=== PATIENT | female | born 1995 | race African-American/Black ===

== ENCOUNTER 2017-06-15 21:23 | Inpatient (IN) | payer MEDICAID ==
[~2017-06-15] VITALS: Ht 167.6 cm; Wt 70.3 kg
[2017-06-15] MEDS ORDERED: DEXT 5%/LR + PITOCIN 20UNITS/L 1,000 ML IV SCH ×2 (21:38→23:36)
[2017-06-15] MEDS ORDERED: LACTATED RINGERS 1,000 ML IV SCH ×2 (21:38→22:00)
[2017-06-15] MEDS ORDERED: BUTORPHANOL TARTRATE 2 MG/ML VIAL IV PRN (21:43)
[2017-06-15] MEDS ORDERED: NALOXONE HCL 0.4 MG/ML 1ML VIAL IM PRN (21:45)
[2017-06-15] MEDS ORDERED: METHYLERGONOVINE MALEATE 0.2 MG/ML IM PRN (21:45)
[2017-06-15] MEDS ORDERED: LIDOCAINE HCL 1% 20ML VIAL (Pyxis) INJ INFIL SCH (21:45)
[2017-06-15] MEDS ORDERED: MISOPROSTOL 100MCG TABLET VG SCH (21:45)
[2017-06-15] MEDS ORDERED: CARBOPROST TROMETHAMINE 250 MCG/ML AMPUL IM PRN (21:45)
[2017-06-15] MEDS ORDERED: PENICILLIN G POTASSIUM 5 MMU in DEXT 5% WATER 100 ML IV NR (22:00)
[2017-06-15 22:24] LABS: CLARITY URINE CLEAR (CLEAR); COLOR URINE YELLOW (YELLOW); GLUCOSE URINE NEGATIVE (NEGATIVE); KETONES URINE NEGATIVE (NEGATIVE); LEUKOCYTE ESTERASE URINE 1+ (NEGATIVE); NITRITE URINE NEGATIVE (NEGATIVE); OCCULT BLOOD URINE NEGATIVE (NEGATIVE); PROTEIN URINE NEGATIVE (NEGATIVE); SPECIFIC GRAVITY URINE 1.004 (1.005-1.030)
[2017-06-15 22:33] LABS: BASOPHILS % 0.3 % (0.0-2.0); EOSINOPHILS % 0.4 % (0.0-5.0); HEMATOCRIT. 34.2 % (36.0-48.0); HEMOGLOBIN. 11.6 g/dL (12.0-16.0); LYMPHOCYTES % 21.3 % (20.0-50.0); MEAN CORPUSCULAR HEMOGLOBIN 29.9 pg (28.0-32.0); MEAN CORPUSCULAR VOLUME 88.6 fL (81.0-99.0); MEAN PLATELET VOLUME 10.6 fl (7.4-10.4); MONOCYTES % 9.2 % (2.0-8.0); NEUTROPHILS % 68.8 % (40.0-76.0); PLATELET 165 x1000/uL (130-400); RED BLOOD CELL COUNT 3.86 mill/uL (4.2-5.4)
[2017-06-15 22:34] LABS: PARTIAL THROMBOPLASTIN TIME 28.5 sec (23.4-31.0)
[2017-06-15 22:36] LABS: *AMPHETAMINES SCREEN URINE NEGATIVE (NEGATIVE); *BARBITURATES SCREEN URINE NEGATIVE (NEGATIVE); *BENZODIAZEPINES SCREEN URINE NEGATIVE (NEGATIVE); *COCAINE SCREEN URINE NEGATIVE (NEGATIVE); CANNABINOID URINE SCREEN NEGATIVE (NEGATIVE); METHADONE URINE SCREEN NEGATIVE (NEGATIVE); OPIATES URINE SCREEN NEGATIVE (NEGATIVE); PHENCYCLIDINE URINE SCREEN NEGATIVE (NEGATIVE)
[2017-06-15 23:09] LABS: RUBELLA IGG 78.6 IU/mL (4.99-10)
[2017-06-15 23:10] LABS: HEPATITIS B SURFACE ANTIGEN NEGATIVE
[2017-06-15] MEDS ORDERED: GLYCERIN/WITCH HAZEL LEAF MEDICATED PAD TOP PRN (23:45)
[2017-06-15] MEDS ORDERED: RHO(D) IMMUNE GLOBULIN 300 MCG/SYR IM PRN (23:45)
[2017-06-15] MEDS ORDERED: ACETAMINOPHEN WITH CODEINE 300/30MG TABLET PO PRN (23:45)
[2017-06-15] MEDS ORDERED: BISACODYL 10MG SUPP PR PRN (23:45)
[2017-06-16] MEDS ORDERED: TETANUS, DIPHTHERIA, PERTUSSIS VAC/PF 0.5ML (>7YR OLD) IM ONE (00:15)
[2017-06-16] MEDS ORDERED: PENICILLIN G POTASSIUM 2.5 MMU in DEXTROSE 5% WATER 50 ML IV SCH (02:00)
[2017-06-16] MEDS: ACETAMINOPHEN WITH CODEINE 300/30MG TABLET PO PRN ×3 (02:02→20:48)
[2017-06-16] MEDS: IBUPROFEN 400MG TABLET PO PRN ×2 (04:23→12:43)
[2017-06-16 07:50] VITALS: BP 98/61
[2017-06-16 08:39] LABS: BASOPHILS % 0.4 % (0.0-2.0); EOSINOPHILS % 0.4 % (0.0-5.0); HEMATOCRIT. 32.4 % (36.0-48.0); HEMOGLOBIN. 10.8 g/dL (12.0-16.0); LYMPHOCYTES % 19.5 % (20.0-50.0); MEAN CORPUSCULAR HEMOGLOBIN 29.7 pg (28.0-32.0); MEAN CORPUSCULAR VOLUME 88.9 fL (81.0-99.0); MEAN PLATELET VOLUME 10.5 fl (7.4-10.4); MONOCYTES % 8.4 % (2.0-8.0); NEUTROPHILS % 71.3 % (40.0-76.0); PLATELET 152 x1000/uL (130-400); RED BLOOD CELL COUNT 3.64 mill/uL (4.2-5.4); RED CELL DISTRIBUTION WIDTH 13.8 % (11.6-14.6)
[2017-06-16] MEDS: PRENATAL VIT/FE FUMARATE/FA TABLET PO SCH (08:39)
[2017-06-16] MEDS: FERROUS SULFATE 325MG TABLET PO SCH ×3 (08:39→17:35)
[2017-06-16 15:16] VITALS: BP 104/78
[2017-06-16] MEDS: HYDROCODONE/ACETAMINOPHEN 5/325MG TABLET PO PRN (16:43)
[2017-06-16 20:00] VITALS: BP 111/63
[2017-06-16] MEDS ORDERED: DOCUSATE SODIUM 100MG CAPSULE PO SCH (21:00)
[2017-06-17 04:00] VITALS: BP 108/65
[2017-06-17] MEDS: ACETAMINOPHEN WITH CODEINE 300/30MG TABLET PO PRN (05:12)
[2017-06-17 07:27] VITALS: BP 92/51
[2017-06-17] MEDS: HYDROCODONE/ACETAMINOPHEN 5/325MG TABLET PO PRN (08:03)
[2017-06-17] MEDS: FERROUS SULFATE 325MG TABLET PO SCH (08:03)
[2017-06-17] MEDS: PRENATAL VIT/FE FUMARATE/FA TABLET PO SCH (08:03)
== END 2017-06-17 12:30 | disposition home or self-care (01) | DRG 560 ==
LOC: L&D 21:23 → OBSVTOIN 21:23 → 7EST PP/OB 06-16 01:18
PROVIDERS: ADMIT Specialist; ATTEND Specialist
PROC: 10E0XZZ Delivery of Products of Conception, External Approach (ICD-10-PCS; principal; 2017-06-15 22:50)
DX: O99.344 Other mental disorders complicating childbirth (principal); F32.9 Major depressive disorder, single episode, unspecified; Z37.0 Single live birth; F90.9 Attention-deficit hyperactivity disorder, unspecified type; F41.9 Anxiety disorder, unspecified; Z3A.40 40 weeks gestation of pregnancy
CPT/HCPCS: 36415; 80305; 81001; 85025; 85610; 85730; 86592; 86703; 86762; 86850; 86900; 87340; J0595; J2540; J2590; J7060; J7120

== ENCOUNTER 2017-12-18 17:25 | Emergency (ER) | payer MEDICAID ==
[~2017-12-18] VITALS: Ht 167.6 cm; Wt 69.0 kg
[2017-12-18 20:33] VITALS: BP 109/76
[2017-12-18] MEDS ORDERED: ACETAMINOPHEN 325MG TABLET PO ONE (21:45)
== END 2017-12-18 22:25 | disposition home or self-care (01) ==
LOC: ER 19:51
DX: K08.89 Other specified disorders of teeth and supporting structures (principal); Z98.890 Other specified postprocedural states
CPT/HCPCS: 81025; 99282